=== PATIENT | female | born 1930 | race Caucasian/White ===

== ENCOUNTER 2020-05-07 14:21 | Inpatient (IN) | payer OTHER, SELFPAY ==
[~2020-05-07] VITALS: Ht 162.6 cm; Wt 54.4 kg
--- NOTE | 2020-05-07 14:25 | NUR ---
PT [facility]
--- NOTE | 2020-05-07 14:30 | NUR ---
PT PLACED ON 3 LEAD ECG AND PULSE OX.
[2020-05-07 14:43] VITALS: BP 121/64
--- NOTE | 2020-05-07 14:47 | NUR ---
PER EMS CARETAKERS NUMBER [phone]
--- NOTE | 2020-05-07 15:15 | NUR ---
89 Y/F BIBA FROM HOME FOR GENERALIZED WEAKNESS X 1 WEEK. PER EMS PTS SON WAS SEEN AT [place] YESTERDAY AND SWABBED FOR COVID, BUT UNKNOWN RESULT. PT DENIES COUGH, FEVER, SOB, N/V/D OR PAIN AT THIS TIME. PER EMS PT WAS 85% ON RA. PT PLACED ON 4 L NC AND NOW 93%. PT A &O X 4. PERRLA. PT RR EVEN. ABD SOFT. DENIES DYSURIA, DENIES CP. PMH- DENIES NKDA
--- NOTE | 2020-05-07 15:42 | NUR ---
DR. MACKENZIE AT BEDSIDE.
--- NOTE | 2020-05-07 15:51 | NUR ---
STAT LABS AND SWABS WALKED OVER TO LAB AND HANDED TO FÉLIX (PHLEB)
[2020-05-07 16:05] LABS: HEMOGLOBIN 12.5 g/dL (12.0-16.0); MEAN CORPUSCULAR HEMOGLOBIN 31 pg (27-31); MEAN CORPUSCULAR HGB CONC 34 g/dL (33-37); MEAN CORPUSCULAR VOLUME 91.3 fL (80-94); PLATELET COUNT (AUTO) 352 K/uL (140-450); RED BLOOD CELL COUNT(AUTO) 4.05 MIL/uL (4.20-5.40); RED CELL DISTRIBUTION WIDTH 13.8 % (11.6-13.7); WHITE BLOOD COUNT (AUTO) 15.3 K/uL (4.8-10.8)
[2020-05-07 16:17] LABS: ALBUMIN 2.2 g/dL (3.4-5.0); ANION GAP 16.9 (8-16); ASPARTATE AMINOTRANSFERASE 70 U/L (15-37); CHLORIDE 94 mmol/L (98-107); CREATININE 0.9 mg/dL (0.6-1.3); GLUCOSE 89 mg/dL (74-106); POTASSIUM 4.9 mmol/L (3.5-5.1); SODIUM SERUM 129 mmol/L (136-145); TOTAL BILIRUBIN 1.6 mg/dL (0.0-1.0); UREA NITROGEN, BLOOD 24 mg/dL (7-18)
[2020-05-07 16:21] LABS: APPEARANCE,URINE HAZY (CLEAR); BILIRUBIN,URINE 2+ (NEGATIVE); BLOOD, URINE 1+ (NEGATIVE); COLOR,URINE DARK YELLOW (YELLOW); LEUKOCYTE ESTERASE ,URINE TRACE (NEGATIVE); NITRITE, URINE NEGATIVE (NEGATIVE); UGLUCOSE NEGATIVE (NEGATIVE)
--- NOTE | 2020-05-07 16:29 | NUR ---
XR AT BEDSIDE.
--- NOTE | 2020-05-07 16:43 | NUR ---
Lactic acid 2.4--critical value received from lab. Dr Bailey made aware
[2020-05-07 16:57] LABS: PROTHROMBIN TIME 10.1 secs (10.8-13.4)
[2020-05-07 17:01] LABS: D-DIMER > 5000 ng/ml (0-400)
[2020-05-07 17:06] LABS: COARSE GRANULAR CASTS,URINE 0-10 /LPF (None Seen); RBC,URINE 0-5 /HPF (0-5); URINE AMORPHOUS URATE 1+ /HPF (None Seen); WBC,URINE 0-5 /HPF (0-5)
[2020-05-07 17:26] LABS: FIBRINOGEN 777 mg/dL (200-400)
[2020-05-07 17:33] LABS: C-REACTIVE PROTEIN QUANT < 0.2 mg/dL (0.0-0.9)
--- NOTE | 2020-05-07 18:06 | NUR ---
PT SATTING 85% ON 4 L NC, PT PLACED ON NONREBREATHER 15L.
--- NOTE | 2020-05-07 18:07 | NUR ---
PT REPOSITIONED IN BED AND SHIFTED WEIGHT TO L SIDE.
--- NOTE | 2020-05-07 18:17 | NUR ---
LAB AT BEDSIDE.
[2020-05-07 18:24] LABS: CKMB RELATIVE INDEX 0.5 (0.0-2.5); CREATINE KINASE MB 2.6 ng/mL (0-3.6)
[2020-05-07] MEDS ORDERED: AZITHROMYCIN 500 MG in DEXTROSE 5% 250 ML IV ONE (18:40)
[2020-05-07] MEDS ORDERED: DEXAMETHASONE 10 MG/ML VIAL IVP ONE (18:40)
[2020-05-07] MEDS ORDERED: cefTRIAXone 1,000 MG VIAL ONE (18:50)
--- NOTE | 2020-05-07 19:01 | NUR ---
PT TURNED AND WEIGHT SHIFTED TO R SIDE.
--- NOTE | 2020-05-07 19:15 | NUR ---
TRANSFER OF CARE AT THIS TIME TO LUIS BUTT
--- NOTE | 2020-05-07 19:18 | NUR ---
received report from loyd varghese. transfer of care at this time.
[2020-05-07] MEDS ORDERED: AZITHROMYCIN 500 MG INJ VIAL IV ONE (19:27)
--- NOTE | 2020-05-07 19:30 | NUR ---
PT IS AWAKE AND IN STABLE CONDITION. PT PROVIDED WITH WATER PER REQUEST. ALL PT'S NEEDS MET AT THIS TIME. BED LOCKED IN LOWEST POSITION, SIDE RAILS X2.
--- NOTE | 2020-05-07 21:25 | NUR ---
PT RESTING IN STABLE CONDITION. EQUAL RISE AND FALL OF CHEST WALL. BED LOCKED IN LOWEST POSITION, SIDE RAILS X2. ALL PT'S NEEDS MET AT THIS TIME.
[2020-05-07] MEDS ORDERED: ONDANSETRON 4 MG/2 ML VIAL IVP PRN (23:15)
[2020-05-07] MEDS ORDERED: ACETAMINOPHEN 325 MG TAB PO PRN (23:15)
[2020-05-07] MEDS ORDERED: ALBUTEROL 0.083% 2.5 MG/3 ML NEBU INH PRN (23:15)
[2020-05-07] MEDS ORDERED: LOVENOX 1MG/KG Q12H SUBQ SCH (23:20)
--- NOTE | 2020-05-07 23:30 | NUR ---
PT IS SLEEPING. EQUAL RISE AND FALL OF CHEST WALL. PT IS IN STABLE CONDITION. SIDE RAILS X2, BED LOCKED IN LOWEST POSITION.
--- NOTE | 2020-05-08 01:00 | NUR ---
PT IS SLEEPING IN STABLE CONDITION. EQUAL RISE AND FALL OF CHEST WALL. ALL NEEDS MET AT THIS TIME. SIDE RAILS X2, BED LOCKED IN LOWEST POSITION.
[2020-05-08] MEDS: ENOXAPARIN 60 MG/0.6 ML SYR SUBQ SCH ×3 (01:26→21:36)
--- NOTE | 2020-05-08 04:38 | NUR ---
PT REPOSITIONED, SHEETS CHANGED. PT IN STABLE CONDITION. EQUAL RISE AND FALL OF CHEST WALL. BED LOCKED IN LOWEST POSITION, SIDE RAILS X2.
--- NOTE | 2020-05-08 05:09 | NUR ---
PAGED TO REPORT PT TACHY AND BP ON THE LOW SIDE, STILL ABOVE 65 MAP. PT DOES NOT HAVE FLUIDS.
--- NOTE | 2020-05-08 06:43 | NUR ---
pt truned and repositioned. pt is in stable condition. side rails x2, bed locked in lowest position.
--- NOTE | 2020-05-08 07:14 | NUR ---
report given to loyd bonilla. transfer of care at this time.
--- NOTE | 2020-05-08 07:17 | NUR ---
Report received from LUIS Stuart, transfered care at this time.
[2020-05-08 07:42] LABS: HEMATOCRIT 38.9 % (36-48); HEMOGLOBIN 13.2 g/dL (12.0-16.0); LYMPHOCYTES # (AUTO) 0.1 K/uL (2.5-16.5); LYMPHOCYTES % (AUTO) 0.9 % (20.5-51.1); MEAN CORPUSCULAR HEMOGLOBIN 31 pg (27-31); MEAN CORPUSCULAR HGB CONC 34 g/dL (33-37); MEAN CORPUSCULAR VOLUME 91.1 fL (80-94); MONOCYTES # (AUTO) 0.1 K/uL (0.8-1.0); MONOCYTES % (AUTO) 0.5 % (1.7-9.3); NEUTROPHILS # (AUTO) 9.9 K/uL (1.8-7.7); NEUTROPHILS % (AUTO) 98.6 % (42.2-75.2); PLATELET COUNT (AUTO) 285 K/uL (140-450); RED BLOOD CELL COUNT(AUTO) 4.27 MIL/uL (4.20-5.40); RED CELL DISTRIBUTION WIDTH 13.7 % (11.6-13.7)
--- NOTE | 2020-05-08 08:14 | NUR ---
Pt sleeping at this time, visible equal rise and fall of chest, VSS, will continue to monitor.
--- NOTE | 2020-05-08 08:15 | NUR ---
PATIENT HAS BEEN SCREENED AND CATEGORIZED MODERATE NUTRITION RISK. PATIENT WILL BE SEEN WITHIN 3-5 DAYS OF ADMISSION. 05/10/20 05/12/[address]
[2020-05-08 08:26] LABS: ALBUMIN 1.8 g/dL (3.4-5.0); ANION GAP 16.4 (8-16); ASPARTATE AMINOTRANSFERASE 65 U/L (15-37); CARBON DIOXIDE 22.6 mmol/L (21-32); CHLORIDE 95 mmol/L (98-107); CREATININE 0.9 mg/dL (0.6-1.3); GLUCOSE 102 mg/dL (74-106); SODIUM SERUM 129 mmol/L (136-145); TOTAL BILIRUBIN 1.1 mg/dL (0.0-1.0); UREA NITROGEN, BLOOD 32 mg/dL (7-18)
[2020-05-08] MEDS: ASCORBIC ACID 500 MG TAB PO SCH (09:37)
--- NOTE | 2020-05-08 10:17 | NUR ---
Spoke with Jonas ribeiro caregiver for updates with consent with pt. [phone]
--- NOTE | 2020-05-08 10:30 | NUR ---
Pt resting, bed locked and in lowest position, VSS, will continue to monitor.
--- NOTE | 2020-05-08 10:32 | NUR ---
SOCIAL WORK NOTE: SW WAS UNABLE TO MEET PATIENT AT BEDSIDE. SW CONTACTED PATIENT [phone] BUT MAILBOX WAS FULL. SW CONTACTED RN FOR ADDITIONAL CONTACT INFORMATION BUT NONE WERE AVAILABLE. SW WILL FOLLOW UP.
[2020-05-08] MEDS ORDERED: DEXAMETHASONE 4 MG/ML VIAL IVP ONE (11:30)
[2020-05-08] MEDS ORDERED: remdesivir COMMUNICATION ORDER 1 EA MISC MC PRN (11:35)
--- NOTE | 2020-05-08 11:37 | NUR ---
Spoke with Dr. Caputo for possible code change in status from full code to DNR. At this time pt has refused to answer. Dr. Caputo wants to d/c plasma and remdesivir orders at this time.
--- NOTE | 2020-05-08 11:47 | NUR ---
Convalescent plasma consent obtained and placed in chart.
--- NOTE | 2020-05-08 12:17 | NUR ---
Pt assisted with lunch tray, HOB elevated, will continue to monitor.
--- NOTE | 2020-05-08 12:19 | NUR ---
Dr. Caputo is evaluating the patient at bedside.
--- NOTE | 2020-05-08 12:21 | NUR ---
DR. EPPS AT BEDSIDE.
--- NOTE | 2020-05-08 14:17 | NUR ---
Pt repositioned for comfort, visible equal rise and fall of chest, VSS, will continue to monitor.
--- NOTE | 2020-05-08 15:25 | NUR ---
Titrated down O2 from 15L NRB SPO2 at 97% to 10L NRB SPO2 at 96%.
--- NOTE | 2020-05-08 16:09 | NUR ---
Spoke with Jonas ribeiro caregiver for updates with consent with pt. [phone]
--- NOTE | 2020-05-08 16:12 | NUR ---
Titrated down O2 from 10L NRB SPO2 at 96% to 5L NRB SPO2 at 94%. Will continue to monitor.
--- NOTE | 2020-05-08 16:37 | NUR ---
DC PLANNIN YRS OLD FEMALE PATIENT WAS ADMITTED FROM HOME WITH A DX OF COVID. PT HAS A HX OF OVARIAN CA . PCR COVID TEST POSITIVE. CXR SHOWED CONSOLIDATION OF THE INFERIOR RIGHT UPPER LOBE. STARTED COVID PROTOCOL ROCEPHIN AND AZITHROMYCIN IV ABX. CONSULTED WITH JEAN. ON 15LNRB SATING 95%. DC PLAN TO GO HOME WHEN STABLE CM TO FOLLOW Addendum: 05/14/20 at 1012 by Julia Keating CM DC LICENSED RETAIL SUPERVISOR: RECEIVED ORDER FOR HOME O2 [place] [facility]. TERE ALAN AWARE OF HOME 02 ORDER Addendum: 05/14/20 at 1204 by Julia Keating CM DC LICENSED RETAIL SUPERVISOR: RECEIVED A CALL FROM KWESI AT [facility] [phone] THEY ARE ABLE TO PROVIDE HOME O2 FOR PATIENT BUT THEY DO NOT DELIVER TO HOSPITAL. Addendum: 05/14/20 at 1224 by Julia Keating CM JAMARCUS LEE: SPOKE TO PATIENTS ELLEN SIMEON EDGAR [phone] HE STATED THAT HE WILL BE THE ONE TO WEIGHER AND CHARGER THE PATIENT ONCE DISCHARGED AND THAT IT IS OKAY FOR [facility] TO DELIVER HOME OXYGEN TO HIS HOME. SPOKE TO ARIANE AT [facility] TO PROVIDE HER WITH ADDRESS AND TELEPHONE NUMBER FOR PATIENTS NEIGHBOR. Shen Loreta GARC[address]A [address] [place] [id number] Addendum: 05/15/20 at 0908 by Julia Keating CM JAMARCUS LEE: FOLLOWED UP WITH PATIENTS ELLEN SIMEON. HE RECEIVED A CALL FROM [facility] THAT THE HOME O2 WILL BE DELIVERED TODAY AROUND 11:00 AM. WILL FOLLOW UP Addendum: 05/15/20 at 1344 by Julia Keating CM JAMARCUS LEE: FOLLOWED UP WITH [facility] THEY PUSHED THE DELIVERY TIME TO 4:00 PM-8:00PM. THE REP APOLOGIZED FOR THE INCONVENIENCE AND SHE IS GOING TO MESSAGE THE TURBOGENERATOR OPERATOR TO SEE IF THEY COULD PUSH THIS DELIVERY FOR AN EARLIER TIME. NOTIFIED PATIENTS ELLEN SIMEON Addendum: 05/15/20 at 1540 by Julia Keating CM JAMARCUS LEE: FOLLOWED UP WITH [facility] [phone] THE ETA OF HOME O2 IS STILL BETWEEN 4:00-8:00 PM. NOTIFIED LUIS PIRES Addendum: 05/15/20 at 1605 by Akanksha Mullen RN DC PLANNING PT HAS AN ORDER FOR HOME HEALTH FOR HOME SAFETY EVAL FAXED TO [facility] FOR RESPONSE. CM TO FOLLOW Addendum: 05/15/20 at 1611 by Julia Keating CM DC JESUS: FAXED ORDER FOR HOME SAFETY EVAL [place] [facility] Addendum: 05/15/20 at 1639 by Akanksha Mullen RN DC PLANNING: RECEIVED A CALL FROM DAYANNA CARRANZA AT [facility]. [facility] ACCEPTED PATIENT PHONE #[phone] FAX # [phone] AUTH # [id number] DC LICENSED RETAIL SUPERVISOR TO FOLLOW. Addendum: 05/15/20 at 1741 by Akanksha Mullen RN DC PLANNING: CALLED THE [employer]AVA GRAILS DEVELOPER CAILIN HERNÁNDEZ [phone] STILL WAITING THE HOME O2 ONCE HE RECEIVES THE O2 WILL CALL THE UNIT AND WILL WEIGHER AND CHARGER THE PATIENT. PER CAILIN WAHL [facility] AND PHONE NUMBER [phone] FOLEY WILL CALL MARYURI PEREZ FOR DC MEDICATIONS. NOTIFIED YARELY CHARGE NURSE. Addendum: 05/16/20 at 1631 by Julia Keating CM DC LICENSED RETAIL SUPERVISOR: SPOKE TO CHAD AT [facility] . THEY WILL BE ABLE TO ASSIST PATIENT. PROVIDED THEM WITH CARE TAKERS NUMBER.
--- NOTE | 2020-05-08 16:48 | NUR ---
Titrated down O2 from 5L NRB SPO2 at 94% to 6L NC SPO2 at 93%. Will continue to monitor.
--- NOTE | 2020-05-08 16:49 | NUR ---
Covid results received from lab. Results = Positive. Hard copy requested from lab and placed in infection controls mailbox.
--- NOTE | 2020-05-08 17:52 | NUR ---
Titrated O2 up from 6L NC SPO2 at 88% to 10L NRB SPO2 at 93%. Will continue to monitor.
--- NOTE | 2020-05-08 18:32 | NUR ---
Pt assisted with oral hygiene for comfort, VSS, will continue to monitor.
[2020-05-08] MEDS ORDERED: cefTRIAXone 1,000 MG VIAL ONE (19:03)
--- NOTE | 2020-05-08 19:29 | NUR ---
Gave report to LUIS Soni, transfered care at this time.
--- NOTE | 2020-05-08 19:35 | NUR ---
RECEIVED REPORT FROM ALEX SMITH
[2020-05-08] MEDS ORDERED: AZITHROMYCIN 500 MG INJ VIAL IV ONE (19:55)
[2020-05-08] MEDS: AZITHROMYCIN 500 MG in DEXTROSE 5% 250 ML IV SCH (20:00)
--- NOTE | 2020-05-08 20:29 | NUR ---
SPOKE TO PT'S CAREGIVER, CAILIN, HE WANTED AN UPDATE ON PT, PT STATED OK TO LET CAILIN KNOW CURRENT STATUS. ADVISED PT WILL BE ADMITTED TO HOSPITAL AND CURRENTLY WAITING FOR ROOM TO [facility] AVAILBLE ON THE UNIT.
--- NOTE | 2020-05-08 22:43 | NUR ---
PT RESTING ON GURNEY WITH EYES CLOSED, RESPIRATIONS REGULAR EVEN AND UNLABORED. PT REMAINS ON 10L NON REBREATHER, PT REMAINS ON BEDSIDE MONITOR.
--- NOTE | 2020-05-09 04:23 | NUR ---
PT SLEEPING, REMAINS ON BEDSIDE MONITOR. RESPIRATIONS REGULAR EVEN AND UNLABORED. REMAINS IN 10L NONREBREATHER MASK
--- NOTE | 2020-05-09 05:47 | NUR ---
PT'S DIAPER CHANGED, NO STOOL, DIAPER VERY WET FROM URINE
--- NOTE | 2020-05-09 07:27 | NUR ---
Pt report given to LATONYA SMITH. Transfer of care at this time.
[2020-05-09] MEDS ORDERED: remdesivir COMMUNICATION ORDER 1 EA MISC MC PRN (07:30)
--- NOTE | 2020-05-09 07:30 | NUR ---
Received report from LUIS Soni. Transfer of care at this time
--- NOTE | 2020-05-09 08:17 | NUR ---
Pt given breakfast tray, seated upright in bed eating breakfast.
[2020-05-09] MEDS: ASCORBIC ACID 500 MG TAB PO SCH (09:20)
[2020-05-09] MEDS: ENOXAPARIN 60 MG/0.6 ML SYR SUBQ SCH ×2 (09:21→22:26)
--- NOTE | 2020-05-09 11:15 | NUR ---
REPORT RECEIVED FROM LUIS HANKS. TRANSFER OF CARE AT THIS TIME.
--- NOTE | 2020-05-09 11:30 | NUR ---
PT IS RESTING. EQUAL RISE AND FALL OF CHEST WALL. OPENS EYES TO VERBAL STIMUATION. ALL PT'S NEEDS MET AT THIS TIME. BED LOCKED IN LOWEST POSITION, SIDE RAILS X2.
[2020-05-09] MEDS ORDERED: remdesivir CLINICAL MONITORING 1 EA MISC MC PRN (11:40)
--- NOTE | 2020-05-09 12:15 | NUR ---
SON ARYA ELISE, STATED PT'S EXPENSES ARE PAID FOR AT [facility].
--- NOTE | 2020-05-09 12:52 | NUR ---
PT IS SITTING UP EATING LUNCH.
[2020-05-09] MEDS ORDERED: REMDESIVIR (EUA) 200 MG in NACL 0.9% 100 ML IV SCH (14:00)
--- NOTE | 2020-05-09 14:00 | NUR ---
pt is awake, equal rise and fall of chest wall. all pt's needs met at this time. bed locked in lowest position, side rails x2.
--- NOTE | 2020-05-09 16:45 | NUR ---
pt is resting, equal rise and fall of chest wall. pt opens eyes to verbal stimulation. all pt's needs met at this time. bed locked in lowest position, side rails x2.
--- NOTE | 2020-05-09 17:08 | NUR ---
pt's diaper changed, only urine observed. all pt's needs met. pt's bed laid back per request. bed locked in lowest position, side rails x2.
--- NOTE | 2020-05-09 18:55 | NUR ---
pt is resting. equal rise and fall of chest wall. pt is in stable condition. side rails x2 and bed locked in lowest position. all pt's needs met at this time.
[2020-05-09] MEDS ORDERED: AZITHROMYCIN 500 MG INJ VIAL IV ONE (19:06)
[2020-05-09] MEDS: AZITHROMYCIN 500 MG in DEXTROSE 5% 250 ML IV SCH (19:12)
--- NOTE | 2020-05-09 19:14 | NUR ---
RECEIVED REPORT FROM DAQUAN SMITH
--- NOTE | 2020-05-09 19:14 | NUR ---
report givem to loyd forbes. transfer of care at this time.
--- NOTE | 2020-05-09 21:00 | NUR ---
PT TRYING TO REST BUT BED 10A CONTINUES TO YELL OUT, ADVISED PT HER ROOMMATE WILL BE MOVING TO THE FLOOR
[2020-05-09] MEDS ORDERED: cefTRIAXone 1,000 MG VIAL ONE (21:53)
--- NOTE | 2020-05-09 22:51 | NUR ---
SPOKE TO PT'S DAUGHTER IN LAW, UPDATED HER ON PT'S CONDITION. ADVISED PT FAMILY CALLED INQUIRING ABOUT HER HOPE [phone]
--- NOTE | 2020-05-09 23:56 | NUR ---
S/W pt neighbor, Jonas Arellano requesting for update. Jonas Arellano
--- NOTE | 2020-05-10 02:17 | NUR ---
PT SLEEPING, REMAINS ON BEDSIDE MONITOR, NON REBREATHER AT 10L O2. RESPIRATIONS REGULAR EVEN AND UNLABORED.
--- NOTE | 2020-05-10 06:37 | NUR ---
DIAPER CHANGED AND PERINEAL CARE GIVEN. PT REPOSITIONED FOR COMFORT. RESPIRATIONS REMAIN EVEN REGULAR AND UNLABORED. REMAINS ON BEDSIDE MONITOR
--- NOTE | 2020-05-10 07:21 | NUR ---
Pt report given to ALEX SMITH. Transfer of care at this time.
--- NOTE | 2020-05-10 07:22 | NUR ---
RECEIVED REPORT FROM LUIS GORDON, TRANSFER OF CARE AT THIS TIME.
--- NOTE | 2020-05-10 07:34 | NUR ---
Pt repositioned in bed, HOB elevated, VSS, will continue to monitor.
--- NOTE | 2020-05-10 08:12 | NUR ---
Pt provided breakfast tray, HOB elevated, bed locked and in lowest position.
[2020-05-10] MEDS: ASCORBIC ACID 500 MG TAB PO SCH (08:40)
[2020-05-10] MEDS: ENOXAPARIN 60 MG/0.6 ML SYR SUBQ SCH ×2 (08:43→21:52)
--- NOTE | 2020-05-10 09:50 | NUR ---
Titrated down O2 from 10L NRB SPO2 at 98% to 5L NRB SPO2 at 94%. Will continue to monitor.
--- NOTE | 2020-05-10 11:19 | NUR ---
ocular care technologist at pt bedside.
--- NOTE | 2020-05-10 11:41 | NUR ---
Pt states mouth is dry, assisted with drinking orange juice. Pt repositioned, VSS, will continue to monitor.
--- NOTE | 2020-05-10 11:54 | NUR ---
Titrated up O2 from 5L NRB SPO2 at 89% to 10L NRB SPO2 at 96%. Will continue to monitor.
[2020-05-10 12:13] LABS: ALBUMIN 1.7 g/dL (3.4-5.0); ANION GAP 12.7 (8-16); ASPARTATE AMINOTRANSFERASE 88 U/L (15-37); CARBON DIOXIDE 24.6 mmol/L (21-32); CHLORIDE 101 mmol/L (98-107); CREATININE 0.5 mg/dL (0.6-1.3); GLUCOSE 95 mg/dL (74-106); POTASSIUM 4.3 mmol/L (3.5-5.1); SODIUM SERUM 134 mmol/L (136-145); TOTAL BILIRUBIN 0.4 mg/dL (0.0-1.0); UREA NITROGEN, BLOOD 35 mg/dL (7-18)
--- NOTE | 2020-05-10 13:24 | NUR ---
Pt repositioned up in bed, VSS, will continue to monitor.
--- NOTE | 2020-05-10 13:54 | NUR ---
Pt IV to left AC 20g slipped out, d/c'd. Placed a new IV to right wrist 20g, good blood return noted.
[2020-05-10] MEDS: REMDESIVIR (EUA) 100 MG in NACL 0.9% 100 ML IV SCH (14:11)
--- NOTE | 2020-05-10 15:24 | NUR ---
Pt resting comfortably, HOB lowered per pt request. VSS, will continue to monitor.
--- NOTE | 2020-05-10 16:02 | NUR ---
Spoke with Jonas ribeiro caregiver for updates with consent with pt. [phone]
--- NOTE | 2020-05-10 16:37 | NUR ---
Dr. Looney at pt bedside.
--- NOTE | 2020-05-10 16:52 | NUR ---
Collected MRSA swab, walked to lab.
--- NOTE | 2020-05-10 17:38 | NUR ---
Changed to clean diaper, repositioned pt in bed, VSS, will continue to monitor.
[2020-05-10] MEDS ORDERED: cefTRIAXone 1,000 MG VIAL ONE (19:23)
--- NOTE | 2020-05-10 19:27 | NUR ---
RECEIVED REPORT FROM LUIS JOHNSON. TRANSFER OF CARE AT THIS TIME.
--- NOTE | 2020-05-10 19:27 | NUR ---
Gave report to LUIS Stuart, transfered care at this time.
--- NOTE | 2020-05-10 19:47 | NUR ---
CALLED AND GAVE REPORT TO LUIS CALERO. [phone]
--- NOTE | 2020-05-10 20:30 | NUR ---
Patient will be admitted to care of [facility]. Admited to TELE. Will go to room 108A. Belongings list completed. Report to
[2020-05-10] MEDS: ALPRAZolam 0.25 MG TAB PO PRN (21:53)
[2020-05-11 04:00] VITALS: BP 106/71
--- NOTE | 2020-05-11 07:45 | NUR ---
RECEIVED REPORT FROM LIGHT RAIL TRANSIT OPERATOR NURSE. PT AOX4 ON 10L NRB. RESPIRATIONS EVEN AND UNLABORED. NO S/S RESPIRATORY DISTRESS. IV SITE RIGHT WRIST 20G, SALINE LOCKED. INTACT AND PATENT. PLAN OF CARE WAS DISCUSSED. SAFETY MEASURES IN PLACE. CALL LIGHT WITHIN REACH. WILL CONTINUE TO MONITOR.
[2020-05-11 08:00] VITALS: BP 113/75
[2020-05-11 08:20] LABS: BASOPHILS % (AUTO) 0.2 % (0.0-2.0); EOSINOPHILS % (AUTO) 0.1 % (0.0-4.0); HEMATOCRIT 37.4 % (36-48); HEMOGLOBIN 12.6 g/dL (12.0-16.0); LYMPHOCYTES # (AUTO) 0.3 K/uL (2.5-16.5); LYMPHOCYTES % (AUTO) 4.9 % (20.5-51.1); MEAN CORPUSCULAR HEMOGLOBIN 31 pg (27-31); MEAN CORPUSCULAR HGB CONC 34 g/dL (33-37); MEAN CORPUSCULAR VOLUME 91.2 fL (80-94); MONOCYTES # (AUTO) 0.3 K/uL (0.8-1.0); MONOCYTES % (AUTO) 4.8 % (1.7-9.3); PLATELET COUNT (AUTO) 303 K/uL (140-450); WHITE BLOOD COUNT (AUTO) 5.5 K/uL (4.8-10.8)
[2020-05-11] MEDS: ASCORBIC ACID 500 MG TAB PO SCH (08:57)
[2020-05-11] MEDS: ENOXAPARIN 60 MG/0.6 ML SYR SUBQ SCH ×2 (08:57→22:57)
--- NOTE | 2020-05-11 08:57 | NUR ---
SCHEDULED AM MEDICATIONS WERE GIVEN TO PT, PARAMETER CHECKED WILL MONITOR PT.
[2020-05-11 09:06] LABS: ALBUMIN 1.8 g/dL (3.4-5.0); ANION GAP 10.4 (8-16); ASPARTATE AMINOTRANSFERASE 69 U/L (15-37); CARBON DIOXIDE 27.9 mmol/L (21-32); CHLORIDE 101 mmol/L (98-107); CREATININE 0.6 mg/dL (0.6-1.3); GLUCOSE 93 mg/dL (74-106); POTASSIUM 4.3 mmol/L (3.5-5.1); SODIUM SERUM 135 mmol/L (136-145); TOTAL BILIRUBIN 0.4 mg/dL (0.0-1.0); UREA NITROGEN, BLOOD 33 mg/dL (7-18)
--- NOTE | 2020-05-11 11:45 | NUR ---
CHECKED ON PATIENT. PATIENT IS RESTING IN BED. RESPIRATIONS EVEN AND UNLABORED. NO SIGNS OF DISTRESS NOTED. WILL CONTINUE TO MONITOR.
[2020-05-11 12:00] VITALS: BP 98/64
--- NOTE | 2020-05-11 14:30 | NUR ---
CHECKED ON PATIENT. PATIENT IS STABLE. NO ACUTE RESPIRATORY DISTRESS NOTED. WILL CONTINUE TO MONITOR.
[2020-05-11] MEDS: REMDESIVIR (EUA) 100 MG in NACL 0.9% 100 ML IV SCH (14:56)
[2020-05-11 16:00] VITALS: BP 107/69
--- NOTE | 2020-05-11 19:15 | NUR ---
ENDORSED TO AMMUNITION ASSEMBLY LABORER NURSE FOR CONTINUITY OF CARE.
[2020-05-11 20:00] VITALS: BP 98/67
[2020-05-12] VITALS: BP 101/67
[2020-05-12 04:00] VITALS: BP 95/62
--- NOTE | 2020-05-12 07:30 | NUR ---
RECEIVED REPORT FROM NIGHT NURSE FOR CONTINUITY OF CARE. PT IS ASLEEP. PT ON 12L NON-REBREATHER. PT HAS R WRIST 20G SALINE LOCK. PT HAS SACRAL REDNESS. SAFETY MEASURES IN PLACE, WILL CONTINUE TO MONITOR.
[2020-05-12 08:00] VITALS: BP 104/67
[2020-05-12 09:22] LABS: BASOPHILS % (AUTO) 0.1 % (0.0-2.0); EOSINOPHILS % (AUTO) 0.2 % (0.0-4.0); HEMATOCRIT 38.6 % (36-48); HEMOGLOBIN 12.9 g/dL (12.0-16.0); LYMPHOCYTES # (AUTO) 0.4 K/uL (2.5-16.5); MEAN CORPUSCULAR HEMOGLOBIN 30 pg (27-31); MEAN CORPUSCULAR HGB CONC 34 g/dL (33-37); MEAN CORPUSCULAR VOLUME 90.9 fL (80-94); MONOCYTES # (AUTO) 0.2 K/uL (0.8-1.0); MONOCYTES % (AUTO) 2.3 % (1.7-9.3); NEUTROPHILS # (AUTO) 10.3 K/uL (1.8-7.7); NEUTROPHILS % (AUTO) 93.4 % (42.2-75.2); PLATELET COUNT (AUTO) 356 K/uL (140-450); RED BLOOD CELL COUNT(AUTO) 4.25 MIL/uL (4.20-5.40); RED CELL DISTRIBUTION WIDTH 14.1 % (11.6-13.7)
[2020-05-12 09:27] LABS: ANION GAP 12.3 (8-16); CARBON DIOXIDE 27.8 mmol/L (21-32); CHLORIDE 98 mmol/L (98-107); CREATININE 0.6 mg/dL (0.6-1.3); GLUCOSE 91 mg/dL (74-106); POTASSIUM 4.1 mmol/L (3.5-5.1); SODIUM SERUM 134 mmol/L (136-145); UREA NITROGEN, BLOOD 27 mg/dL (7-18)
[2020-05-12 09:28] LABS: ALBUMIN 1.9 g/dL (3.4-5.0); ASPARTATE AMINOTRANSFERASE 60 U/L (15-37); TOTAL BILIRUBIN 0.4 mg/dL (0.0-1.0)
[2020-05-12] MEDS: ENOXAPARIN 60 MG/0.6 ML SYR SUBQ SCH ×2 (10:10→21:00)
[2020-05-12] MEDS: ASCORBIC ACID 500 MG TAB PO SCH (10:10)
--- NOTE | 2020-05-12 10:16 | NUR ---
ADMINISTERED SCHEDULED MEDICATION, MEDICATION EDUCATION PROVIDED. PT TOLERATED WELL. PT IS STABLE, WILL CONTINUE TO MONITOR. PT ON 15L NON-REBREATHER,
[2020-05-12 12:00] VITALS: BP 99/65
[2020-05-12] MEDS: REMDESIVIR (EUA) 100 MG in NACL 0.9% 100 ML IV SCH (13:50)
--- NOTE | 2020-05-12 13:54 | NUR ---
ADMINISTERED SCHEDULED MEDICATION, MEDICATION EDUCATION PROVIDED. PT TOLERATED WELL. PT IS STABLE, WILL CONTINUE TO MONITOR.
--- NOTE | 2020-05-12 14:58 | NUR ---
05/12/2020 RD INITIAL ASSESSMENT COMPLETED PLEASE REFER TO NUTRITION ASSESSMENT UNDER CARE ACTIVITY FOR ESTIMATED NUTRITIONAL NEEDS. CONTINUE CURRENT DIET, ADD ENSURE BID FOR ADDITIONAL KCALS/PRO RD TO FOLLOW-UP IN 3-5 DAYS PATIENT IS MODERATE RISK. HITESH ABREU, RD
[2020-05-12 16:00] VITALS: BP 106/75
--- NOTE | 2020-05-12 18:44 | NUR ---
ADMINISTERED SCHEDULED MEDICATION, MEDICATION EDUCATION PROVIDED. PT TOLERATED WELL. PT IS STABLE, WILL CONTINUE TO MONITOR.
--- NOTE | 2020-05-12 19:15 | NUR ---
ENDORSE PT TO NIGHT NURSE FOR CONTINUITY OF CARE, PT IS STABLE.
--- NOTE | 2020-05-12 19:15 | NUR ---
RECEIVED ENDORSEMENT FOR CONTINUITY OF CARE, PT IN BED RESTING WITH EYES CLOSED, NO S/S OF DISTRESS , SHE IS ON 7 LITERS OXYMIZER AND HAS 20G R WRIST RUNNING N/S TO KVO. ALL ORDERED PRECAUTIONS IN PLACE.
[2020-05-12 20:00] VITALS: BP 106/68
--- NOTE | 2020-05-12 21:00 | NUR ---
PT RESTING WITH EYES CLOSED, BUT AROUSABLE TO NAME AND LIGHT TOUCH, PT GIVEN ORDERED LOVENOX SQ PT VERBELIZED UNDERSTANDING OF MEDICATION AND ITS PURPOSES.
--- NOTE | 2020-05-12 21:45 | NUR ---
XANAX TAKEN OUT OF OMNICELL, BUT RETURNED, PT IS CALM AND XANAX NOT NEEDED.
--- NOTE | 2020-05-12 23:24 | NUR ---
PT WAS TURNED, CHANGED AND REPOSITIONED IN BED.
[2020-05-13] VITALS: BP 113/71
--- NOTE | 2020-05-13 01:00 | NUR ---
NEIGHBOR AND TC OPERATOR, CAILIN HERNÁNDEZ NUMBER [phone]. PT GAVE VERBAL CONSENT FOR HIM TO HAVE MEDICAL INFORMATION. PT WAS ABLE TO SPEAK WITH HIM OVER THE PHONE.
--- NOTE | 2020-05-13 02:45 | NUR ---
DUE TO CHANGE OF ASSIGNMENT , PT GIVEN TO MOISES CONLEY RN , REPORT GIVEN FOR CONTINUITY OF CARE, PT IN STABLE CONDITION.
--- NOTE | 2020-05-13 02:50 | NUR ---
RECEIVED PT SLEEPING ON FOWLERS POSITION, NO RESP DISTRESS NOTED, WITH O2 AT 7L VIA OXIMIZER IN PLACE, IVF INFUSING WELL AT TKO RATE, SAFETY MEASURES IN PLACE, MONITORED CLOSELY.
[2020-05-13 04:00] VITALS: BP 105/65
--- NOTE | 2020-05-13 07:24 | NUR ---
REC'D REPORT FROM COMBAT SYSTEMS OPERATOR NURSE ,PT SLEEPING, STABLE ,CALL LIGHT WITHIN REACH. ON 7L OXIMIZER.
--- NOTE | 2020-05-13 07:25 | NUR ---
PT SLEEPING, NO SIGNS OF RESP DISTRESS, REPORT GIVEN TO LUIS VALDES FOR CONTINUITY OF CARE.
[2020-05-13 08:00] VITALS: BP 104/68
[2020-05-13 08:40] LABS: BASOPHILS % (AUTO) 0.1 % (0.0-2.0); EOSINOPHILS # (AUTO) 0.1 K/uL (0-0.4); EOSINOPHILS % (AUTO) 0.8 % (0.0-4.0); HEMATOCRIT 38.6 % (36-48); HEMOGLOBIN 13.1 g/dL (12.0-16.0); LYMPHOCYTES # (AUTO) 0.4 K/uL (2.5-16.5); MEAN CORPUSCULAR HEMOGLOBIN 31 pg (27-31); MEAN CORPUSCULAR HGB CONC 34 g/dL (33-37); MEAN CORPUSCULAR VOLUME 90.9 fL (80-94); MONOCYTES # (AUTO) 0.3 K/uL (0.8-1.0); MONOCYTES % (AUTO) 3.2 % (1.7-9.3); NEUTROPHILS # (AUTO) 8.5 K/uL (1.8-7.7); NEUTROPHILS % (AUTO) 91.9 % (42.2-75.2); PLATELET COUNT (AUTO) 307 K/uL (140-450); RED BLOOD CELL COUNT(AUTO) 4.25 MIL/uL (4.20-5.40); RED CELL DISTRIBUTION WIDTH 14.1 % (11.6-13.7); WHITE BLOOD COUNT (AUTO) 9.3 K/uL (4.8-10.8)
[2020-05-13 08:57] LABS: ALBUMIN 1.6 g/dL (3.4-5.0); ANION GAP 7.8 (8-16); ASPARTATE AMINOTRANSFERASE 45 U/L (15-37); CARBON DIOXIDE 31.3 mmol/L (21-32); CHLORIDE 101 mmol/L (98-107); CREATININE 0.5 mg/dL (0.6-1.3); GLUCOSE 99 mg/dL (74-106); POTASSIUM 4.1 mmol/L (3.5-5.1); SODIUM SERUM 136 mmol/L (136-145); TOTAL BILIRUBIN 0.4 mg/dL (0.0-1.0); UREA NITROGEN, BLOOD 24 mg/dL (7-18)
[2020-05-13] MEDS: ASCORBIC ACID 500 MG TAB PO SCH (10:10)
[2020-05-13] MEDS: ENOXAPARIN 60 MG/0.6 ML SYR SUBQ SCH ×2 (10:12→21:02)
--- NOTE | 2020-05-13 10:28 | NUR ---
ADMINISTERED MEDICATIONS PER MD ORDER, PT TOLERATED PROCEDURE WELL. HAS LARGE PURPLE DISCOLORATION ON BACK OF R, HAND, NO PAIN, NO EDEMA
[2020-05-13 12:00] VITALS: BP 103/58
--- NOTE | 2020-05-13 13:06 | NUR ---
OXYGEN SATURATION CHECKED BY Rachel LILLY RCP SUPPLEMENTAL OXYGEN AT 4 LPM VIA OXYMIZER 92% ROOM AIR 86%
--- NOTE | 2020-05-13 14:05 | NUR ---
SOCIAL WORK NOTE: SW CONTACTED PATIENT'S NEIGHBOR CAILIN [phone] TO COMPLETE ASSESSMENT. SW LEFT AND WILL FOLLOW UP.
[2020-05-13] MEDS: REMDESIVIR (EUA) 100 MG in NACL 0.9% 100 ML IV SCH (14:57)
--- NOTE | 2020-05-13 14:58 | NUR ---
ADMINISTERED MEDICATIONS PER MD ORDER, PT TOLERATED PROCEDURE WELL, IV SITE DRY, CLEAN INTACT.
[2020-05-13 16:00] VITALS: BP 96/66
--- NOTE | 2020-05-13 17:15 | NUR ---
PT RESTING, CALL LIGHT WITHIN REACH. STABLE
--- NOTE | 2020-05-13 19:40 | NUR ---
RECEIVED BEDSIDE REPORT FROM DAY SHIFT NURSE. PATIENT IS AWAKE, RESPIRATION EVEN UNLABORED ON 7L OXYMIZER. NO DISTRESS NOTED. SKIN IS WARM AND DRY. SACRAL REDNESS NOTED. IV PATENT AND INTACT. PLAN OF CARE WAS DISCUSSED. ALL SAFETY MEASURES IN PLACE. BED IS AT LOW POSITION. CALL LIGHT WITHIN REACH. WILL CONTINUE TO MONITOR.
--- NOTE | 2020-05-13 19:45 | NUR ---
ENDORSED TO ACCOUNT MAINTENANCE REPRESENTATIVE NURSE ,PT STABLE, CALL LIGHT WITHIN REACH
[2020-05-13 20:00] VITALS: BP 107/68
--- NOTE | 2020-05-13 21:05 | NUR ---
ALL SCHEDULED MEDS WERE GIVEN PER ORDER. NO ASE NOTED. WILL CONTINUE TO MONITOR.
--- NOTE | 2020-05-13 22:15 | NUR ---
PROVIDED PATIENT GOOD PERICARE
--- NOTE | 2020-05-13 22:59 | NUR ---
MADE ROUNDS. PATIENT SLEEPING RESPIRATION EVEN UNLABORED ON 7L OXYMIZER. NO DISTRESS NOTED. WILL CONTINUE TO MONITOR.
[2020-05-14] VITALS: BP 90/65
--- NOTE | 2020-05-14 02:15 | NUR ---
MADE ROUNDS. PATIENT SLEEPING RESPIRATION EVEN UNLABORED ON 7L OXIMIZER. NO DISTRESS NOTED. WILL CONTINUE TO MONITOR.
[2020-05-14 04:00] VITALS: BP 107/69
--- NOTE | 2020-05-14 04:22 | NUR ---
VITALS WERE TAKEN.
--- NOTE | 2020-05-14 04:45 | NUR ---
PROVIDED MORNING CARE AND PERICARE
--- NOTE | 2020-05-14 07:18 | NUR ---
REC'D REPORT FROM SALES ACTIVITY MANAGER NURSE, PT STABLE. 7L OXIMIZER.
--- NOTE | 2020-05-14 07:33 | NUR ---
ENDORSED PATIENT TO DAY SHIFT NURSE FOR CONTINUITY OF CARE
[2020-05-14 08:00] VITALS: BP 126/75
[2020-05-14 08:47] LABS: BASOPHILS % (AUTO) 0.2 % (0.0-2.0); EOSINOPHILS % (AUTO) 0.7 % (0.0-4.0); HEMOGLOBIN 13.1 g/dL (12.0-16.0); LYMPHOCYTES # (AUTO) 0.4 K/uL (2.5-16.5); LYMPHOCYTES % (AUTO) 5.8 % (20.5-51.1); MEAN CORPUSCULAR HEMOGLOBIN 30 pg (27-31); MEAN CORPUSCULAR HGB CONC 34 g/dL (33-37); MEAN CORPUSCULAR VOLUME 90.6 fL (80-94); MONOCYTES # (AUTO) 0.2 K/uL (0.8-1.0); MONOCYTES % (AUTO) 3.4 % (1.7-9.3); NEUTROPHILS # (AUTO) 6.1 K/uL (1.8-7.7); NEUTROPHILS % (AUTO) 89.9 % (42.2-75.2); PLATELET COUNT (AUTO) 334 K/uL (140-450); RED BLOOD CELL COUNT(AUTO) 4.31 MIL/uL (4.20-5.40); RED CELL DISTRIBUTION WIDTH 13.9 % (11.6-13.7); WHITE BLOOD COUNT (AUTO) 6.7 K/uL (4.8-10.8)
[2020-05-14] MEDS: ASCORBIC ACID 500 MG TAB PO SCH (09:13)
[2020-05-14] MEDS: ENOXAPARIN 60 MG/0.6 ML SYR SUBQ SCH ×2 (09:14→21:00)
--- NOTE | 2020-05-14 09:24 | NUR ---
ADMINISTERED MEDICATIONS PER MD ORDER, PT TOLERATED PROCEDURE WELL
--- NOTE | 2020-05-14 11:38 | NUR ---
SOCIAL WORK NOTE: Patient's Orientation Unable To Assess Information Provided By CAILIN EDGAR - NEIGHBOR/CAREGIVER Comments SW WAS UNABLE TO MEET PATIENT AT BEDSIDE. SW COMPLETED ASSESSMENT WITH PATIENT'S NEIGHBOR, CAILIN. PER CAILIN, PATIENT LIVES AT [address] [place] [address] ALONE. Operations Research Analyst, Realtionship and Phone Number CAILIN HERNÁNDEZ NEIGHBOR/CAREGIVER [phone] Healthcare Power of Childcare Administrator No Does Patient Have a POLST Yes Identifying Problems No Social Work Triggers Is A Social Work Consult Needed No Mandate Report Filed No Explanation Of Identifying Problems PATIENT IS AN 89-YEAR-OLD FEMALE ADMITTED FOR COVID. PATIENT HAS PMHX OF OVARIAN CANCER. Admitted From Home Pre-Admission Level Of Functioning Status Assist With ADL Level Of Functioning Comment CAILIN STATED THAT PATIENT NEEDS ASSISTANCE WITH PREPARING MEALS, WASHING CLOTHES, CLEANING, AND GROCERY SHOPPING. Prior Resources/Services Used In Last 12 Months No Prior Resources Used Prior DME Walker Wheelchair Dialysis Comments N/A Living Situation Apartment Lives Alone Other Living Situation/Comment PATIENT HAS CAREGIVER, CAILIN HERNÁNDEZ. Patient Had Caregiver Yes Name and Contact Number Of Designated Caregiver CAILIN HERNÁNDEZ - [phone] Home Support CG/Fam Able To Meet Need Financial Issues No Known Financial Issue Referral To The Financial Counselor Needed No Factors/Needs No D/C Needs Identified Pt/Rep Participated In Discharge Plan Yes Patient/Family Agress With Discharge Plan Yes Discharge Plan Comments TENTATIVE DISCHARGE PLAN IS FOR PATIENT TO RETURN HOME. DC Plan Status Initiated
[2020-05-14 12:00] VITALS: BP 104/68
[2020-05-14 16:00] VITALS: BP 103/52
--- NOTE | 2020-05-14 20:29 | NUR ---
ENDORSED PT TO BOX HINGE AND LOCK ATTACHER NURSE, PT STABLE. 5L OXIMIZER, GAVE MESSAGE FROM DR. PAGAN TO DECREASE OXYGEN TO 4L FOR BOX HINGE AND LOCK ATTACHER NURSE TO ASSESS.
[2020-05-14] MEDS: ALPRAZolam 0.25 MG TAB PO PRN (21:23)
--- NOTE | 2020-05-14 21:45 | NUR ---
ATTEMPTED MULTIPLE TIMES TO SIGN 2100 MEDICATION (LOVENOX) BUT [facility] IS NOT ALLOWED TO SIGN OFF. I.T. WAS CALLED FOR A FIX - SEE TICKET NUMBER [id number]. Addendum: 05/15/20 at 0052 by Agency 04 LUIS RN CANCEL ENTIRE PREVIOUS NOTE. NOTE IN ERROR.
[2020-05-15] MEDS: ENOXAPARIN 60 MG/0.6 ML SYR SUBQ SCH ×3 (01:02→20:54)
--- NOTE | 2020-05-15 07:25 | NUR ---
RECEIVED PATIENT FROM NIGHT NURSE. PATIENT IN BED SLEEPING, CHEST NOTED RISING. NO NOTED ACUTE S/S DISTRESS. RESP EVEN AND UNLABORED ON 4L NC. RW 20G SL. HOB ELEVATED. SAFETY MEASURES IN PLACE. CALL LIGHT WITHIN REACH. WILL CONTINUE TO MONITOR.
[2020-05-15 08:00] VITALS: BP 104/74
[2020-05-15] MEDS: ASCORBIC ACID 500 MG TAB PO SCH (09:26)
--- NOTE | 2020-05-15 09:35 | NUR ---
PATIENT SITTING UP IN BED EATING BREAKFAST. PATIENT REQUIRED TO ASSIST AND CAN FEED SELF INDEPENDENTLY. RESP EVEN AND UNLABORED ON 4LNC. DENIED OF PAIN AT THIS TIME. NO NOTED DISTRESS AT THIS TIME. RW 20G INTACT AND SL. PLAN OF CARE DISCUSSED, PATIENT VERBALIZED UNDERSTANDING. CALL LIGHT WITHIN REACH. WILL CONTINUE TO MONITOR.
[2020-05-15 09:59] LABS: BASOPHILS % (AUTO) 0.2 % (0.0-2.0); EOSINOPHILS # (AUTO) 0.1 K/uL (0-0.4); HEMATOCRIT 37.3 % (36-48); HEMOGLOBIN 12.7 g/dL (12.0-16.0); LYMPHOCYTES # (AUTO) 0.5 K/uL (2.5-16.5); LYMPHOCYTES % (AUTO) 9.5 % (20.5-51.1); MEAN CORPUSCULAR HEMOGLOBIN 31 pg (27-31); MEAN CORPUSCULAR HGB CONC 34 g/dL (33-37); MEAN CORPUSCULAR VOLUME 90.4 fL (80-94); MONOCYTES # (AUTO) 0.4 K/uL (0.8-1.0); MONOCYTES % (AUTO) 6.7 % (1.7-9.3); NEUTROPHILS # (AUTO) 4.5 K/uL (1.8-7.7); NEUTROPHILS % (AUTO) 81.6 % (42.2-75.2); PLATELET COUNT (AUTO) 363 K/uL (140-450); RED BLOOD CELL COUNT(AUTO) 4.12 MIL/uL (4.20-5.40); RED CELL DISTRIBUTION WIDTH 14.1 % (11.6-13.7); WHITE BLOOD COUNT (AUTO) 5.5 K/uL (4.8-10.8)
[2020-05-15 12:00] VITALS: BP 114/65
--- NOTE | 2020-05-15 12:35 | NUR ---
PATIENT IN BED EATING LUNCH. NO NOTED ACUTE S/S DISTRESS. ABLE TO MAKE NEEDS KNOWN AND FOLLOW COMMANDS. CALL LIGHT WITHIN REACH. WILL CONTINUE TO MONITOR.
--- NOTE | 2020-05-15 14:35 | NUR ---
PATIENT IN BED SLEEPING, CHEST NOTED RISING. NO ACUTE S/S DISTRESS. CALL LIGHT WITHIN REACH. WILL CONTINUE TO MONITOR.
[2020-05-15 16:00] VITALS: BP 118/72
--- NOTE | 2020-05-15 16:38 | NUR ---
PATIENT IS AWARE OF BEING DISCHARGED HOME. AWAITING FOR OXYGEN TO BE DELIVERED. WILL CONTINUE TO MONITOR.
--- NOTE | 2020-05-15 19:30 | NUR ---
RECEIVED BEDSIDE REPORT FROM DAY SHIFT NURSE FOR CONTINUITY OF CARE. PT IS AWAKE AND ALERT, A&OX4. PT IS AWARE OF D/C TONIGHT. ON 4L O2 NC WITH BREATHING UNLABORED. PT IS INCONTINENT WITH DRY CHUCKS IN PLACE. SACRAL REDNESS PER DAY SHIFT NURSE, WILL ASSESS SHORTLY. SKIN IS WARM, DRY, AND INTACT. IV IS IN THE RIGHT WRIST 20 GAUGE SALINE LOCKED. PT IS STABLE.
--- NOTE | 2020-05-15 19:35 | NUR ---
ENDORSED PATIENT TO NIGHT NURSE. PATIENT IN STABLE CONDITION.
[2020-05-15 20:00] VITALS: BP 117/75
--- NOTE | 2020-05-15 21:00 | NUR ---
SPOKE TO REP. CHINTAN FROM [facility]. INFORMED HIM THAT THE OXYGEN HAD NO BEEN DELIVERED TO THE PT'S NEIGHBORS HOME. THEY INFORMED ME THAT THEY WILL SEND THE BUSINESS CONTINUITY GLOBAL DIRECTOR IMMEDIATELY. WILL CALL ELLEN SIMEON, TO INFORM HIM THAT THEY ARE COMING.
--- NOTE | 2020-05-15 21:10 | NUR ---
INFORMED CAILIN, PT'S NEIGHBOR, THAT THE OXYGEN WILL BE ARRIVING TO THE HOME SHORTLY AND THEN THE PT WILL BE AVAILABLE FOR D/C. CAILIN WILL CALL WHEN THE OXYGEN ARRIVES.
--- NOTE | 2020-05-15 21:30 | NUR ---
ROUNDED ON PT. SHE IS ASLEEP. STABLE AT THIS TIME. BREATHING IS UNLABORED. OXYGEN IN PLACE, NC. IV IS SALINE LOCKED. CALL LIGHT WITHIN REACH.
--- NOTE | 2020-05-15 23:20 | NUR ---
SPOKE TO CAILIN, PT'S NEIGHBOR AND COMPUTER SYSTEMS MANAGER. HE INFORMED ME THAT THE OXYGEN ARRIVED, BUT HE STATED HE WILL NOT BE ABLE TO GUIDE RAIL CLEANER THE PT NOW THAT IT IS LATE. WILL DISCUSS WITH GOODS LAYER AND CALL BACK.
--- NOTE | 2020-05-15 23:30 | NUR ---
INFORMED CHANGE OVER OF THE SITUATION AND SHE SAID IT WOULD BE OKAY FOR THE PT TO BE PICKED UP BETWEEN 8 AM AND [address]. [address] SHEN, WHO IS APPAREL PATTERNMAKER, THAT THE PT WILL NOT BE LEAVING [facility]. CALLED CAILIN AND TOLD HIM TO VISION SPECIALIST PT BETWEEN 8-10 AM. HE AGREED AND WILL F/U IN THE AM. PT WAS INFORMED AND IS NOW GOING TO SLEEP.
--- NOTE | 2020-05-16 01:30 | NUR ---
PT WAS CHANGED AND REPOSITIONED SHE VOIDED. SACRAL REGION WAS CLEANSED WITH NS AND PATTED DRY. SACRAL DRESSING WAS APPLIED. PT IS BACK TO SLEEP AND COMFORTABLE. NO DISTRESS NOTED.
--- NOTE | 2020-05-16 03:30 | NUR ---
ROUNDED ON PT. SHES SLEEPING IN SEMI FOWLERS POSITION. NO RESPIRATORY DISTRESS NOTED. PT IS COMFORTABLE.
--- NOTE | 2020-05-16 05:30 | NUR ---
PT WAS CHANGED AND REPOSITIONED. PT VOIDED IN DIAPER. PT WAS ABLE TO ASSIST WITH CHANGING. REDNESS ON SACRAL AREA WAS MINIMAL, NO OPEN WOUND. PT WAS GIVEN WATER AND GOWN WAS CHANGED.
--- NOTE | 2020-05-16 07:15 | NUR ---
ENDORSED PT TO DAY SHIFT NURSE FOR CONTINUITY OF CARE. PT IS STABLE AT THIS TIME. PLAN OF CARE DISCUSSED.
--- NOTE | 2020-05-16 07:20 | NUR ---
REC'D BEDSIDE ENDORSEMENT FROM NIGHTSHIFT NURSE. WILL PROCEED W/ CONTINUITY OF CARE.
[2020-05-16] MEDS: ASCORBIC ACID 500 MG TAB PO SCH (11:04)
[2020-05-16] MEDS: ENOXAPARIN 60 MG/0.6 ML SYR SUBQ SCH (11:04)
--- NOTE | 2020-05-16 11:34 | NUR ---
ADMINISTERED SCHED MEDS PER MD ORDER. PATIENT TOLERATED WELL. MEDICATION EDUCATION PROVIDED. PATIENT VERBALIZED UNDERSTANDING.
--- NOTE | 2020-05-16 12:32 | NUR ---
PATIENT IS DISCHARGED. REMOVED IV LINE, ASSISTED PATIENT IN PERSONAL CLOTHING. D/C PAPERWORK PRINTED. PATIENT REVIEWED, SIGNED AND VERBALIZED UNDERSTANDING. PATIENT WAS PICKED UP BY OPERATOR ASSISTANT I CEMENTING WHO HAD HOME O2 WITH HIM. ACCOMPANIED PATIENT OUT TO CAR, PLACED NC W/ O2 AT 4L. PATIENT IS STABLE.
== END 2020-05-16 12:15 | DRG 871 ==
LOC: MED 14:21 → MTU 05-08 02:07
PROVIDERS: ADMIT Hospitalist; ATTEND Hospitalist
PROC: XW033E5 Introduction of Remdesivir Anti-infective into Peripheral Vein, Percutaneous Approach, New Technology Group 5 (ICD-10-PCS; principal; 2020-05-09)
DX: A40.3 Sepsis due to Streptococcus pneumoniae (principal); U07.1 COVID-19; J13 Pneumonia due to Streptococcus pneumoniae; J12.82 Pneumonia due to coronavirus disease 2019; J96.01 Acute respiratory failure with hypoxia; E87.1 Hypo-osmolality and hyponatremia; M62.82 Rhabdomyolysis; Z85.43 Personal history of malignant neoplasm of ovary; Z66 Do not resuscitate
CPT/HCPCS: 36415; 71045; 80053; 81001; 82550; 82553; 82728; 83605; 83615; 83880; 84484; 85025; 85379; 85384; 85610; 85730; 86140; 87040; 87086; 87186; 87804; 93005; 96365; 96367; 96375; 97110; 97116; 97161-GP; 97530; 99291; J0456; J0696; J1100; J1650; J7030; J7060; U0003